=== PATIENT | female | born 1985 ===

== ENCOUNTER 2016-09-26 11:42 | Outpatient (CLI) | payer OTHER ==
[2016-09-26] MEDS ORDERED: TERBUTALINE SULFATE 1 MG/ML VIAL SUB-Q ONE (12:04)
[2016-09-26] MEDS ORDERED: TERBUTALINE SULFATE 1 MG/ML VIAL IV ONE (12:04)
[2016-09-26] MEDS ORDERED: IV START KIT ONE (12:09)
[2016-09-26] MEDS ORDERED: LACTATED RINGERS 1,000 ML IV SCH (12:15)
[2016-09-26 13:14] VITALS: BMI 42.0
--- NOTE | 2016-09-27 12:26 | PROCNOTE ---
ZOILA PALMER [id number] : 1985 DATE OF PROCEDURE: September 26, 2016 HISTORY: Zoila Palmer is a 30-year-old 2, para 0, 0/1/0, who was seen in the clinic on September 21, 2016, at 36 1/2 weeks gestation by Shirley Caban. She was discovered to be breech and actually this was not a big surprise because the baby had been breech on the previous two visits. An ultrasound confirmed this breech presentation. The DEMETRICE was 11.9 cm. The placenta was anterior and left lateral. Options were discussed with the patient, and she requested to come in today for an external cephalic version. To review Zoila's history, she has been followed since about 16 weeks of this by the director of trauma practice. She has had regular visits and a regular increase in the fundal height. Her blood pressures have been a little labile. Sometimes a bit high of the systolic though the diastolic have remained okay, and she has not had any significant proteinuria. She has had a total weight gain of only 4 pounds though her weight has fluctuated a little bit, and she started out at 290 pounds. The patient's testing has mostly been normal with a one-hour glucose tolerance test of 95. She did have GBS culture which came back negative. She has really not had any complications during this . The patient was asked to come in shortly after 11:00 this morning. She was fasting as requested. An initial ultrasound showed that the baby was indeed in a breech position with the head in the fundus of the uterus, the back to the maternal left, and the breech just at the pelvic brim. Fortunately there seemed to be plenty of fluid, and the baby's legs were flexed. It was a bit difficult to palpate the head well, but I was able to get a good sense of how this baby was sitting both by ultrasound and by palpation. The patient's consent was obtained after discussing risks and possible complications. An IV was then started and the patient was given 0.25 mg of terbutaline. After this had taken effect, I began a manipulation of the patient's abdomen while Allan checked on the heart rate periodically by ultrasound. Without much difficulty, I was able to elevate the breech above the pelvic brim and even into the left lower quadrant. I then attempted to get this baby to do a forward roll in a counterclockwise direction bringing the head down on the maternal right side. The baby was quit flexible and a couple of times it felt like she was nearly transverse but this was rather uncomfortable for the patient. As soon as I let go of the baby, she reverted back nearly to her original position, though the breech remained high and on the left side, and the baby was quite active and kicking her legs. I tried three separate times to bring this baby into a transverse position and encourage a forward roll but in the end this was not successful. Zoila was very stoic and was able to relax while I tried this manipulation. The baby (Hortencia) never showed any stress with this manipulation. After determining that this version was not going to be successful, we did watch the baby for approximately an hour making sure that there was no sign of concern. The patient's vital signs remained stable throughout this procedure. heart tones were in the 130s with excellent accelerations. This baby was noted to be quite active. No worrisome decelerations occurred. Approximately an hour after the version attempt mother and baby were doing well, and the patient was discharged home. The plan at this point is to give this baby another couple of weeks to see if she will turn on her own, and I am optimistic that this is quite possible. If she does not turn, we probably will proceed with a primary section after 39 weeks gestation. The patient and her family understand and are in agreement with this plan.
== END 2016-09-26 14:53 | disposition home or self-care (01) ==
LOC: FBCOUT 11:42 → SUATTDRO 11:42 → FBC 11:43 → FBCOUT 14:53
PROVIDERS: ATTEND Obstetrics & Gynecology
PROC: 10S0XZZ Reposition Products of Conception, External Approach (ICD-10-PCS; principal; 2016-09-26)
DX: O32.1XX0 Maternal care for breech presentation, not applicable or unspecified (principal); Z3A.36 36 weeks gestation of pregnancy
CPT/HCPCS: 96372; 96361 ×2; 59412; 59025; 76815; 81002; J3105; J7120

== ENCOUNTER 2016-10-09 05:22 | Inpatient (IN) | payer OTHER ==
[2016-10-09] MEDS ORDERED: CEFAZOLIN SODIUM 2 GRAM DUPLEX 2 G in Premix (D5W) 50 ml 1 EACH IV PRN (05:27)
[2016-10-09] MEDS ORDERED: IV START KIT ONE (05:38)
[2016-10-09] MEDS ORDERED: LACTATED RINGERS 1,000 ML ONE (05:38)
[2016-10-09] MEDS ORDERED: CEFAZOLIN SODIUM 2 GRAM DUPLEX 50 ML IV ONE (05:39)
[2016-10-09] MEDS ORDERED: SODIUM CHLORIDE 0.9% FLUSH 10 ML ONE ×2 (05:39→06:39)
[2016-10-09] MEDS: LACTATED RINGERS 1,000 ML IV SCH ×3 (06:00→18:15)
[2016-10-09 06:07] VITALS: BMI 42.3
[2016-10-09 06:19] LABS: HEMATOCRIT 34.5 % (37.0-47.0); HEMOGLOBIN 11.5 gm/l (12.0-16.0); MEAN CELL VOLUME 86.9 fl (81.0-99.0); MEAN CORPUSCULAR HGB CONC 33.3 g/dl (33.0-37.0); RED CELL DISTRIBUTION WIDTH 13.9 % (11.5-14.5)
[2016-10-09] MEDS ORDERED: OXYTOCIN 10 UNITS/ML VIAL ONE ×3 (06:39→08:28)
[2016-10-09] MEDS ORDERED: MORPHINE SULFATE (DURAMORPH) 1 MG/ML 10ML AMP ONE (06:39)
[2016-10-09] MEDS ORDERED: PHENYLEPHRINE 10 MG/1 ML (1%) VIAL ONE (06:39)
[2016-10-09] MEDS ORDERED: ONDANSETRON 4 MG/2ML 2 ML VIAL ONE ×2 (06:39→07:12)
[2016-10-09] MEDS ORDERED: FENTANYL 100 MCG/2 ML VIAL ONE (06:39)
[2016-10-09] MEDS ORDERED: CITRIC ACID/SODIUM CITRATE 15 ML UDCUP PO ONE (07:19)
[2016-10-09] MEDS ORDERED: FAMOTIDINE 10 MG/ML 2ML VIAL ONE (07:20)
--- NOTE | 2016-10-09 07:26 | PDOC1 ---
- HPI 30 year old at 39+1/7 weeks gestational age by LMP, confirmed with []- week ultrasound who desires repeat LTCS for means of delivery due to persistent breech presentation. Pt had a failed external cephalic version 1 week ago. She presents for assessment and review of history in anticipation of her upcoming surgery. Today patient denies any changes in health. Her course has been followed for the following problem list. care with CNM service breech presentation, failed ECV and acupuncture asthma - well controlled off meds h/o bipolar h/o migraines SOCIAL HISTORY: Marital status: FOB involved No Tobacco, alcohol use, or drug use. quit smoking prior to FAMILY HISTORY: No congenital abnormalities or twins. Allergies/Adverse Reactions: Allergies Sulfa (Sulfonamide Antibiotics) Allergy (Unknown, Verified 09/26/16 12:47) Hives - Labs & Studies LABS: A pos, ab neg plt 248 rubella equivocal RPR, HepB, HIV negative gc/ct neg gbs neg had 19w u/s; c/w dates - Physical Exam General: Afebrile, No Acute Distress Lungs: Clear to Auscultation Bilaterally Cardiovascular: Regular Rate and Rhythm Abdomen: Obese, Other (efw 3800g), No Tenderness - Assessment & Plan 30yo with breech presentation, for primary c/section. Discussed with patient the risks of including infection, bleeding possibly requiring blood transfusion, damage to underlying structures including bowel, bladder, uterus, tubes, ovaries, baby, and ureter, as well as will have a scar and can have persistent pain and numbness at incision site. The patient agrees to proceed with LTCS and will arrive at scheduled time for preop. She was advised to avoid any food or drink 8 hours prior to scheduled surgery.
[2016-10-09] MEDS ORDERED: EPHEDRINE SULFATE UD SYR 25 MG 25 MG/5 ML SYRINGE IV ONE (07:36)
[2016-10-09] MEDS ORDERED: HYDROMORPHONE HCL 1 MG/ML SYRINGE IV PRN (07:59)
[2016-10-09] MEDS ORDERED: EPHEDRINE SULFATE 50 MG/ML 1ML VIAL IV PRN (07:59)
[2016-10-09] MEDS ORDERED: NALOXONE HCL 0.4 MG/ML VIAL IV PRN (07:59)
[2016-10-09] MEDS ORDERED: ONDANSETRON 4 MG/2ML 2 ML VIAL IV PRN ×2 (07:59→09:36)
[2016-10-09] MEDS ORDERED: DIPHENHYDRAMINE HCL 50 MG/1 ML VIAL IV PRN ×2 (07:59→09:36)
[2016-10-09] MEDS ORDERED: NALBUPHINE HCL 20 MG/ML AMP IV PRN (07:59)
[2016-10-09] MEDS ORDERED: PROMETHAZINE HCL 25 MG/ML VIAL IM PRN (07:59)
[2016-10-09] MEDS ORDERED: HYDROMORPHONE HCL 2 MG/ML SYRINGE IV PRN (07:59)
[2016-10-09] MEDS ORDERED: SPINAL PROCEDURAL TRAY 1 EACH ONE (08:14)
[2016-10-09] MEDS ORDERED: KETOROLAC TROMETHAMINE 30 MG/ML 1 ML VIAL ONE (08:42)
[2016-10-09] MEDS ORDERED: LANOLIN 50 APPLIC/7G TUBE TP PRN (09:36)
[2016-10-09] MEDS ORDERED: DIPHENHYDRAMINE HCL 25 MG CAPSULE PO PRN (09:36)
[2016-10-09] MEDS ORDERED: KETOROLAC TROMETHAMINE 30 MG/ML 1 ML VIAL IV PRN (09:36)
[2016-10-09] MEDS ORDERED: PNEUMOCOCCAL 23-VAL P-SAC VAC 0.5 ML VIAL SUB-Q V ONE (11:27)
--- NOTE | 2016-10-09 14:17 | OP ---
SHELDON PALMER [id number] DATE OF OPERATION: October 09, 2016 PREOPERATIVE DIAGNOSES: 1. 39 weeks . 2. Breech presentation. POST OPERATIVE DIAGNOSES: 1. 39 weeks . 2. Breech presentation. OPERATION PERFORMED: Primary low transverse section. SURGEON: Jose Funes M.D. BOTTLE PACKING MACHINE CLEANER: Shirley Caban C.N.M. ANESTHESIA: Spinal. ESTIMATED BLOOD LOSS: 900 mL. COMPLICATIONS: None. OPERATIVE FINDINGS: Include: 1. Liveborn baby female in complete breech presentation with scores of 9 and 9. 2. There was clear amniotic fluid. 3. Ovaries and tubes are normal. OPERATIVE COURSE: Patient was taken to the operating room and placed under spinal anesthesia. The patient was then prepped and draped in a sterile fashion. Adequate anesthesia was confirmed. A Pfannenstiel incision was made and taken down to the level of the fascia. The fascia was then incised transversely and dissected bilaterally off of the underlying rectus muscles. The rectus muscles were in the midline with a scalpel and the peritoneal cavity was then entered in bluntly and stretched. An Kit retractor was then placed. A bladder flap was then created. A transverse incision was made on the lower uterine segment and stretched bilaterally. Baby was then delivered from complete breech presentation. The lower extremities were delivered first followed by the upper extremities which were swept anteriorly and then delivered. The baby's head was then delivered subsequently easily. There was nuchal cord times one noted. Baby was bulb suctioned and after a brief delay, the cord was clamped and cut and the baby was taken to the warmer for the nursing staff. Placenta was then extracted manually, and the uterus was cleared of all clots and membranes. Uterine incision was then closed with #0 Vicryl in a continuous fashion. A second layer of #0 Vicryl was used to imbricate this incision. The uterine incision was then noted to be hemostatic. The ovaries and tubes were palpated to be normal. The peritoneum was then repaired with #3-0 Vicryl and the rectus muscle was reapproximated also with #3-0 Vicryl. The fascia was then closed with #0 Vicryl in a continuous fashion. The subcutaneous space was then closed with #2-0 Chromic, and the skin was then closed with #3-0 Monocryl. The patient was then recovered from anesthesia and taken to the recovery room in stable condition.
[2016-10-09] MEDS: KETOROLAC TROMETHAMINE 30 MG/ML 1 ML VIAL IV SCH ×2 (18:20→23:03)
[2016-10-09] MEDS: PRENATAL VIT/FE FUMARATE/FA 1 TABLET PO SCH (19:06)
[2016-10-09] MEDS: FERROUS SULFATE (65 Fe) 325 MG TABLET PO SCH (19:06)
[2016-10-09] MEDS: DOCUSATE SODIUM 100 MG CAPSULE PO SCH ×2 (19:06→23:12)
[2016-10-10] MEDS: KETOROLAC TROMETHAMINE 30 MG/ML 1 ML VIAL IV SCH (05:32)
[2016-10-10 06:30] LABS: HEMATOCRIT 33.9 % (37.0-47.0); HEMOGLOBIN 10.9 gm/l (12.0-16.0)
--- NOTE | 2016-10-10 08:25 | PDOC44 ---
- Subjective Day: 1 Pt reports pain well controlled with medication. +Flatus. Tolerating PO. Min- moderate amount of lochia. Baby doing well. No concerns at this time. Reports Flatus, Reports Pain Tolerable, Reports Lochia Light, Reports Tolerating Regular Diet - Objective Temp Pulse Resp BP Pulse Ox 98.5 F 93 16 116/61 10/10/16 05:00 10/10/16 05:00 10/10/16 05:00 10/10/16 05:00 Lab Results 10/10/16 06:05 Hgb 10.9 L Hct 33.9 L Current Medications Generic Name Dose Route Start Last Admin Trade Name Freq PRN Reason Stop Dose Admin Diphenhydramine HCl 25 - 50 mg 10/09/16 09:36 Benadryl PO Q6H PRN Itching (Mild/Moderate) Diphenhydramine HCl 25 - 50 mg 10/09/16 09:36 Benadryl IV Q6H PRN Itching (Severe) Docusate Sodium 100 mg 10/09/16 09:36 10/09/16 23:12 Colace PO Not Given BID [facility] Emollient Ointment 1 applic 10/09/16 09:36 10/09/16 23:03 [id number] TP 1 tube PRN PRN Administration sore nipples Ferrous Sulfate 325 mg 10/09/16 09:36 10/09/16 19:06 Ferrous Sulfate PO Not Given DAILY [facility] Lactated Ringer's 1,000 mls @ 125 mls/hr 10/09/16 09:36 10/09/16 18:15 Lactated Ringers IV Not Given .Q8H [facility] Ibuprofen 800 mg 10/09/16 09:36 Motrin PO Q8H PRN Pain Ketorolac Tromethamine 30 mg 10/09/16 09:36 10/09/16 15:12 Toradol IV 30 mg Q6H PRN Administration Pain (Mild/Moderate) Ketorolac Tromethamine 30 mg 10/09/16 14:30 10/10/16 05:32 Toradol IV 10/10/16 14:29 30 mg Q6H JAYLEEN Administration Multivi/Iron Carb/Fe Sulf/FA/Prenat 1 tab 10/09/16 09:36 10/09/16 19:06 Plus PO Not Given DAILY [facility] Ondansetron HCl 4 mg 02/13/17 09:36 Zofran IV Q6H PRN Nausea/Vomiting Oxycodone/Acetaminophen 1 - 2 tab 10/09/16 09:36 Percocet 5/325 PO Q4H PRN Pain (Moderate) Sodium Chloride 10 ml 10/09/16 09:36 10/10/16 05:32 Normal Saline 10ml Flush IV 10 ml PRN PRN Administration IV Flush Sodium Chloride 10 ml 10/09/16 17:00 10/09/16 18:14 Normal Saline 10ml Flush IV Not Given Q8HR [facility] - Physical Exam General: Afebrile Psych/Mental Status: Mood/Affect Appropriate Neurological: Grossly Intact, Alert, Oriented x 4, Normal Speech HEENT: Atraumatic, PERRLA, EOMI, Mucous membr. moist/pink Lungs: Clear to Auscultation Bilaterally, Normal Air Movement Cardiovascular: Regular Rate and Rhythm, Normal S1, Normal S2 Breast: Soft, Skin intact, Nipples Intact Fundus: Firm, Midline, At Umbilicus Abdomen: Normal Bowel Sounds Lochia: Moderate Rectal Exam: Deferred Extremities: Full ROM Skin: Normal Color, Warm, Dry, Intact Wound ROLL PLUGGER: Well Approximated - Problems:Assessment/Plan (1) delivery delivered Status: AcuteAssessment/Plan: Continue routine postoperative care. Expect discharge home POD#2 Disposition: Stable, Anticipate DC Home Tomorrow
[2016-10-10] MEDS: PRENATAL VIT/FE FUMARATE/FA 1 TABLET PO SCH (09:21)
[2016-10-10] MEDS: FERROUS SULFATE (65 Fe) 325 MG TABLET PO SCH (09:21)
[2016-10-10] MEDS: DOCUSATE SODIUM 100 MG CAPSULE PO SCH ×2 (09:21→20:11)
[2016-10-10] MEDS: IBUPROFEN 800 MG TABLET PO PRN ×2 (13:35→21:30)
[2016-10-10] MEDS: OXYCODONE/ACETAMINOPHEN 5/325 MG TABLET PO PRN (20:27)
[2016-10-11] MEDS: LACTATED RINGERS 1,000 ML IV SCH (04:49)
[2016-10-11] MEDS: IBUPROFEN 800 MG TABLET PO PRN ×2 (05:27→18:21)
[2016-10-11] MEDS: FERROUS SULFATE (65 Fe) 325 MG TABLET PO SCH (09:35)
[2016-10-11] MEDS: PRENATAL VIT/FE FUMARATE/FA 1 TABLET PO SCH (09:36)
[2016-10-11] MEDS: DOCUSATE SODIUM 100 MG CAPSULE PO SCH ×2 (09:36→21:10)
[2016-10-11] MEDS: OXYCODONE/ACETAMINOPHEN 5/325 MG TABLET PO PRN (18:20)
--- NOTE | 2016-10-11 19:39 | PDOC44 ---
- Subjective Day: 2 Pt in bed, but sitting up and working on . Pt is doing well, eating well, pain adq controlled. Reports Pain Tolerable, Reports (This is the main struggle.), Reports Lochia Light - Objective Temp Pulse Resp BP Pulse Ox 98.6 F 90 16 122/66 10/11/16 07:58 10/11/16 07:58 10/11/16 07:58 10/11/16 07:58 Current Medications Generic Name Dose Route Start Last Admin Trade Name Freq PRN Reason Stop Dose Admin Diphenhydramine HCl 25 - 50 mg 10/09/16 09:36 Benadryl PO Q6H PRN Itching (Mild/Moderate) Diphenhydramine HCl 25 - 50 mg 10/09/16 09:36 Benadryl IV Q6H PRN Itching (Severe) Docusate Sodium 100 mg 10/09/16 09:36 10/11/16 09:36 Colace PO 100 mg BID JAYLEEN Administration Emollient Ointment 1 applic 10/09/16 09:36 10/09/16 23:03 [id number] TP 1 tube PRN PRN Administration sore nipples Ferrous Sulfate 325 mg 10/09/16 09:36 10/11/16 09:35 Ferrous Sulfate PO 325 mg DAILY JAYLEEN Administration Lactated Ringer's 1,000 mls @ 125 mls/hr 10/09/16 09:36 10/11/16 04:49 Lactated Ringers IV Not Given .Q8H JAYLEEN Ibuprofen 800 mg 10/09/16 09:36 10/11/16 05:27 Motrin PO 800 mg Q8H PRN Administration Pain Ketorolac Tromethamine 30 mg 10/09/16 09:36 10/09/16 15:12 Toradol IV 30 mg Q6H PRN Administration Pain (Mild/Moderate) Multivi/Iron Carb/Fe Sulf/FA/Prenat 1 tab 10/09/16 09:36 10/11/16 09:36 Plus PO 1 tab DAILY JAYLEEN Administration Ondansetron HCl 4 mg 10/09/16 09:36 Zofran IV Q6H PRN Nausea/Vomiting Oxycodone/Acetaminophen 1 - 2 tab 10/09/16 09:36 10/10/16 20:27 Percocet 5/325 PO 1 tab Q4H PRN Administration Pain (Moderate) Sodium Chloride 10 ml 10/09/16 09:36 10/10/16 05:32 Normal Saline 10ml Flush IV 10 ml PRN PRN Administration IV Flush Sodium Chloride 10 ml 10/09/16 17:00 10/11/16 01:39 Normal Saline 10ml Flush IV 10 ml Q8HR JAYLEEN Administration - Physical Exam General: Afebrile Psych/Mental Status: Mood/Affect Appropriate, Bonding Well (with baby girl Hortencia.) Neurological: Alert, Normal Speech Lungs: Clear to Auscultation Bilaterally Cardiovascular: Regular Rate and Rhythm Fundus: Below Umbilicus Abdomen: Normal Bowel Sounds Lochia: Light (normal) Extremities: Other (Moving around slowly but without restriction) Skin: Normal Color, Warm, Dry Wound SITE SAFETY COORDINATOR: Well Approximated (Steri strips in place, dry and clean) - Problems:Assessment/Plan (1) delivery delivered Status: AcuteAssessment/Plan: Continue routine postoperative care. Expect discharge home POD#2 10/11/16 Pt is doing well after her primary c/section for breech. is a struggle but pt is motivated. I anticipate that she will be able to be discharged tomorrow to follow up as an out patient. Disposition: Anticipate DC Home Tomorrow
[2016-10-12] MEDS: IBUPROFEN 800 MG TABLET PO PRN ×2 (06:00→12:24)
[2016-10-12] MEDS: OXYCODONE/ACETAMINOPHEN 5/325 MG TABLET PO PRN ×2 (06:00→12:23)
[2016-10-12 07:47] VITALS: BP 114/62
[2016-10-12] MEDS: LACTATED RINGERS 1,000 ML IV SCH (07:52)
--- NOTE | 2016-10-12 08:52 | PDOC39B ---
Hospital Course: ADMIT DATE: 10/09/16 DISCHARGE DATE: [10/12/2016] ADMISSION DIAGNOSES: [breech presentation] PROCEDURES: [primary ceserean section] HISTORY OF PRESENT ILLNESS: 30 year old G2 T0 L0 at 39 weeks 1 days presenting with for scheduled primary ceserean section for breech presentation after failed external cephalic version HOSPITAL COURSE: The patient had her primary ceserean section on 10/09/2016. The surgery was uncomplicated. Patient desires discharge home today. By day of discharge the patient is ambulating, eating, voiding, and passing flatus without difficulty. Pain is controlled and lochia is appropriate. She is . - Physical Exam Vital Signs: Temp Pulse Resp BP Pulse Ox 98.1 F 88 16 114/62 10/12/16 07:30 10/12/16 07:30 10/12/16 07:30 10/12/16 07:30 - Discharge Diagnosis (1) delivery delivered Status: AcuteAssessment/Plan: Continue routine postoperative care. Expect discharge home POD#2 10/11/16 Pt is doing well after her primary c/section for breech. is a struggle but pt is motivated. I anticipate that she will be able to be discharged tomorrow to follow up as an out patient. - Discharge Plan Instruction Forms: Section Discharge Instructions
[2016-10-12] MEDS: DOCUSATE SODIUM 100 MG CAPSULE PO SCH (10:17)
[2016-10-12] MEDS: FERROUS SULFATE (65 Fe) 325 MG TABLET PO SCH (10:17)
[2016-10-12] MEDS: PRENATAL VIT/FE FUMARATE/FA 1 TABLET PO SCH (10:17)
[2016-10-12] MEDS ORDERED: MEASLES,MUMPS&RUBELLA VACCINE 0.5 ML VIAL SUB-Q V ONE (12:15)
== END 2016-10-12 15:04 | disposition home or self-care (01) | DRG 766 ==
LOC: FBC 05:22 → EDSTATUS 10-15 18:09
PROVIDERS: ADMIT Obstetrics & Gynecology; ATTEND Obstetrics & Gynecology
PROC: 10D00Z1 Extraction of Products of Conception, Low, Open Approach (ICD-10-PCS; principal; 2016-10-09)
DX: O32.1XX0 Maternal care for breech presentation, not applicable or unspecified (principal); O99.344 Other mental disorders complicating childbirth; F31.9 Bipolar disorder, unspecified; Z3A.39 39 weeks gestation of pregnancy; Z37.0 Single live birth

== ENCOUNTER 2016-10-14 14:43 | Outpatient (CLI) | payer OTHER | END 2016-10-14 14:44 | disposition home or self-care (01) | LOC: BABIESSH 14:43 | PROVIDERS: ATTEND Obstetrics & Gynecology | DX: Z39.1 Encounter for care and examination of lactating mother (principal) ==